=== PATIENT | female | born 1965 | race African-American/Black ===

== ENCOUNTER 2018-08-24 21:33 | Emergency (ER) | payer MEDICAID ==
[~2018-08-24] VITALS: Ht 170.2 cm; Wt 86.2 kg
[2018-08-24] MEDS ORDERED: IV NORMAL SALINE 1000 ML BAG IV ONE (21:45)
[2018-08-24] MEDS ORDERED: ONDANSETRON 4 MG/2 ML VIAL IV ONE (21:45)
[2018-08-24] MEDS ORDERED: LORAZEPAM 2 MG/1 ML VIAL IV ONE (21:45)
[2018-08-24 21:58] LABS: BASOPHILS # (AUTO) 0.1 K/uL (0.0-8.0); BASOPHILS % (AUTO) 0.8 % (0.0-2.0); EOSINOPHILS % (AUTO) 0.6 % (0.0-7.0); HEMATOCRIT 42.4 % (31.2-41.9); HEMOGLOBIN 14.8 g/dL (10.9-14.3); LYMPHOCYTES # (AUTO) 1.8 K/uL (20.0-40.0); LYMPHOCYTES % (AUTO) 21.2 % (20.5-51.5); MEAN CORPUSCULAR HEMOGLOBIN 31.3 uug (24.7-32.8); MEAN CORPUSCULAR HGB CONC 35 g/dL (32.3-35.6); MEAN CORPUSCULAR VOLUME 89.6 fL (75.5-95.3); MONOCYTES # (AUTO) 0.4 K/uL (2.0-10.0); MONOCYTES % (AUTO) 5.4 % (0.0-11.0); PLATELET COUNT (AUTO) 276 K/uL (179-408); RED BLOOD CELL COUNT(AUTO) 4.74 MIL/uL (3.63-4.92); WHITE BLOOD COUNT (AUTO) 8.3 K/uL (3.8-11.8)
--- NOTE | 2018-08-24 21:58 | NUR ---
Pt. BIB [facility] w/ c/o N/V since 1699, intermittant epigastric pain, diahrrea, no blood in stool,
[2018-08-24] MEDS ORDERED: ONDANSETRON 4 MG/2 ML VIAL ONE (22:01)
[2018-08-24] MEDS ORDERED: LORAZEPAM 2 MG/1 ML VIAL ONE (22:02)
[2018-08-24 22:08] LABS: CREATININE 0.9 mg/dL (0.6-1.3); POTASSIUM 3.3 mmol/L (3.5-5.1)
[2018-08-24 22:14] LABS: BILIRUBIN,DIRECT 0.2 mg/dL (0.0-0.2); BILIRUBIN,TOTAL 0.9 mg/dL (0.2-1.0); TOTAL PROTEIN, SERUM 7.6 g/dL (6.4-8.2)
[2018-08-24] MEDS ORDERED: POTASSIUM CHLORIDE 20 MEQ TAB.PRT.SR ONE (22:43)
[2018-08-24] MEDS ORDERED: POTASSIUM CHLORIDE 20 MEQ TAB.PRT.SR PO ONE (22:45)
[2018-08-24] MEDS ORDERED: DICYCLOMINE HCL 10 MG/5 ML UDC LIQ ONE (23:14)
[2018-08-24] MEDS ORDERED: DICYCLOMINE HCL 20 MG TABLET PO SCH (23:15)
--- NOTE | 2018-08-24 23:33 | NUR ---
Patient discharged to home in stable conditon. Written and verbal after care instructions given. Patient verbalizes understanding of instructions. Pt. d/c w/ prescription per MD order, left w/ all belongings, instructed not to drive, left in taxi, no acute distress, VSS
[2018-08-24 23:35] VITALS: BP 114/87
== END 2018-08-24 23:36 | disposition home or self-care (01) ==
LOC: ER 21:36
DX: R11.10 Vomiting, unspecified (principal); R10.9 Unspecified abdominal pain; R19.7 Diarrhea, unspecified; E87.6 Hypokalemia
CPT/HCPCS: 36415; 80048; 80076; 83690; 85025; 93005; 96374; 96375; 99284; J2060; J2405; A4663; J7030

== ENCOUNTER 2021-10-19 11:54 | Emergency (ER) | payer MEDICAID ==
[~2021-10-19] VITALS: Ht 172.7 cm; Wt 88.5 kg
--- NOTE | 2021-10-19 12:26 | NUR ---
[email or web address], medical screening exam in progress
[2021-10-19] MEDS ORDERED: AMOX-430 PO (13:43)
[2021-10-19] MEDS ORDERED: NAPR-1164 PO (13:43)
--- NOTE | 2021-10-19 13:48 | NUR ---
Patient discharged to home in stable condition with steady gait. Written and verbal after care instructions given to patient. Patient verbalized understanding and compliance of instructions. 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
--- NOTE | 2021-10-19 13:49 | NUR ---
Paper copy and CD copy of the CT scan results were also provided to patient.
== END 2021-10-19 13:52 | disposition home or self-care (01) ==
LOC: ER 11:54
DX: H70.90 Unspecified mastoiditis, unspecified ear (principal); I88.8 Other nonspecific lymphadenitis; M06.9 Rheumatoid arthritis, unspecified
CPT/HCPCS: A4663

== ENCOUNTER 2021-10-26 11:54 | Emergency (ER) | payer MEDICAID ==
[~2021-10-26] VITALS: Ht 172.7 cm; Wt 88.5 kg
[~2021-10-26 11:54] MED LIST: AMOX-430 PO; NAPR-1164 PO
[2021-10-26] MEDS ORDERED: COSENTYX (12:08)
--- NOTE | 2021-10-26 12:21 | NUR ---
Dr Ramos at the bedside for MSE.
--- NOTE | 2021-10-26 12:32 | NUR ---
Left message for Kendell Banerjee LCSW, PET, per Dr Ramos request.
--- NOTE | 2021-10-26 12:46 | NUR ---
Pt out of ER for CT scan.
--- NOTE | 2021-10-26 12:50 | NUR ---
DEEPTI MCKEON spoke to Paola MARRUFO for psych eval.
--- NOTE | 2021-10-26 13:03 | NUR ---
Kendell Banerjee at the bedside for psych eval.
[2021-10-26] MEDS ORDERED: OLAN5TAB3 PO (13:35)
[2021-10-26] MEDS ORDERED: OLANZAPINE 5 MG TABLET PO ONE (13:45)
[2021-10-26 13:49] VITALS: BP 155/87
[2021-10-26] MEDS ORDERED: OLANZAPINE 5 MG TABLET ONE (13:49)
--- NOTE | 2021-10-26 13:49 | NUR ---
Patient discharged to home in stable condition. Written and verbal after care instructions given. Patient verbalizes understanding of instructions. Stressed follow up or return to ER for worsening s/s.
== END 2021-10-26 13:51 | disposition home or self-care (01) ==
LOC: ER 11:54
DX: G58.8 Other specified mononeuropathies (principal); F22 Delusional disorders; M06.9 Rheumatoid arthritis, unspecified; Z79.899 Other long term (current) drug therapy; M25.78 Osteophyte, vertebrae; M48.02 Spinal stenosis, cervical region
CPT/HCPCS: 70450; 72125; A4663